=== PATIENT | female | born 1980 | race Caucasian/White ===

== ENCOUNTER 2021-11-25 10:20 | Inpatient (IN) | payer SELFPAY ==
[2021-11-25 10:51] VITALS: BMI 20.3
[2021-11-25 10:52] VITALS: BP 110/75; PULSE 101; RESP 18; TEMP 36.6; O2SAT 96
[2021-11-25] MEDS: OLANZapine 5 mg ODT PO (12:58)
[2021-11-25] MEDS: nicotine 2 mg Gum BUCCAL ×2 (12:58→20:39)
[2021-11-25 14:00] VITALS: BP 110/75; PULSE 101; RESP 18; TEMP 36.6; O2SAT 96
[2021-11-25] MEDS: ibuprofen 800 mg tablet PO ×2 (17:39→20:36)
[2021-11-25 20:13] VITALS: BP 95/63; PULSE 92; RESP 18; O2SAT 98
[2021-11-25] MEDS: trazodone 50 mg Tablet PO (20:36)
[2021-11-25] MEDS: hyDROXYzine 25 mg Capsule 50 MG PO (20:39)
[2021-11-25] MEDS: benzocaine 20% 7 gm 1 APPLIC MUCOUS MEM (20:39)
[2021-11-26 06:00] VITALS: BP 109/67; PULSE 73; RESP 16; O2SAT 96
[2021-11-26] MEDS: ibuprofen 800 mg tablet PO ×2 (07:45→20:04)
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
[2021-11-26] MEDS: nicotine 2 mg Gum BUCCAL (08:55)
[2021-11-26] MEDS: nicotine 4 mg lozenge MUCOUS MEM ×2 (10:07→19:13)
[2021-11-26 13:40] VITALS: BP 127/74; PULSE 85; RESP 17; TEMP 36.8; O2SAT 97
[2021-11-26] MEDS: acetaminophen 325 mg Tablet 650 MG PO (15:24)
[2021-11-26] MEDS: clindamycin 150 mg Capsule 300 MG PO ×2 (17:46→20:04)
[2021-11-26] MEDS: propranolol 20 mg Tablet PO (19:13)
[2021-11-26 20:03] VITALS: BP 108/63; PULSE 76; RESP 17; TEMP 36.5; O2SAT 98
[2021-11-26] MEDS: trazodone 50 mg Tablet PO (20:04)
[2021-11-27 05:54] VITALS: BP 115/73; PULSE 93; RESP 16; TEMP 36.9; O2SAT 97
[2021-11-27] MEDS: acetaminophen 325 mg Tablet 650 MG PO ×2 (06:50→12:11)
[2021-11-27] MEDS: ibuprofen 800 mg tablet PO (08:31)
[2021-11-27] MEDS: nicotine 4 mg lozenge MUCOUS MEM ×3 (08:31→16:21)
[2021-11-27] MEDS: clindamycin 150 mg Capsule 300 MG PO ×3 (08:32→21:39)
--- NOTE | 2021-11-27 08:32 | P.NPUPN_ITS ---
Subjective NPU Subjective: Patient presents today reporting that she is little frustrated because she has not been able to reach people out where she was living. She feels confident that they are ignoring her call and that this is not a time to be worried about them. She identifies that notable situation with the person hangs up the call because she is calling her cell phone. Otherwise reports she feels like she is calming down and the medication is helpful. Mental Status Exam MSE Comments: This is a slender white female with a fairly androgenous appearance in hospital scrubs with adequate grooming and eye contact. Tattoos on exposed skin. No abnormal movements. Cooperative with exam in mild distress. Speech was normal rate and volume. Mood described as a little frustrated, affect is subdued. Thought process, organized. Thought content: patient denies any suicidal or homicidal ideation, no delusions reported or noted, and denies any auditory or visual hallucinations. Attention and concentration are intact and memory appeared reliable but none were formally tested. She is alert and oriented three times. Insight and judgment are limited. Impulse control is limited. Vitals/I&O/Wt Last Vital Signs Temp 98.4 F 11/27/21 05:54 Pulse 93 11/27/21 05:54 Resp 16 11/27/21 05:54 BP 115/73 11/27/21 05:54 Pulse Ox 97 11/27/21 05:54 Weight last 48 hrs Weight 72.303 kg Weight 68.039 kg A&P Assessment and plan (1) MINOO (generalized anxiety disorder): Status: Acute (2) Major depressive disorder: Status: Acute (3) Domestic concerns: Status: Acute Plan This is a 41 year old white female with a long history of trauma and genetic loading for mental health, addiction and lethality issues who presents on a 96 hour hold secondary to recent interpersonal conflict between her and one of the people she has been living with. 1.? Continue current medications except started Propranolol 20 mg po q tid prn. 2.? Encourage individual, group and milieu therapy 3.? Continue q-15 minute check for safety 4.? Recommend sober living treatment at the highest level of care to which the patient is willing to commit. Involuntary Hold Information 96 Hour Hold: 96 Hour Involuntary Admission: Yes 96 Hour Hold Ending Date: 11/29/21 96 Hour Hold Ending Time: 21:20 Attestations NPU Medical Necessity Statement*: Inpatient hospitalization is medically necessary and the clinically appropriate intervention at this time. We will monitor medications and make changes as indicated. Likely length of stay is 1-3 days. Coding Level of Care Code Acute Honing Machine Operator Tool for g Fwd Diagnoses MINOO (generalized anxiety disorder) F41.1 Major depressive disorder F32.9 Domestic concerns Z65.8
[2021-11-27] MEDS: OLANZapine 5 mg ODT PO ×3 (12:12→21:39)
[2021-11-27 13:44] VITALS: BP 109/67; PULSE 66; RESP 17; TEMP 36.6; O2SAT 98
[2021-11-27] MEDS: ibuprofen 600 mg Tablet PO ×3 (14:47→21:39)
[2021-11-27 21:58] VITALS: BP 113/70; PULSE 61; RESP 17; TEMP 36.7; O2SAT 98
[2021-11-28 06:00] VITALS: RESP 16
[2021-11-28] MEDS: nicotine 4 mg lozenge MUCOUS MEM (08:11)
[2021-11-28] MEDS: propranolol 20 mg Tablet PO (08:11)
[2021-11-28] MEDS: clindamycin 150 mg Capsule 300 MG PO ×2 (08:11→12:48)
[2021-11-28] MEDS: ibuprofen 800 mg tablet PO (08:11)
[2021-11-28] MEDS: acetaminophen 325 mg Tablet 650 MG PO (12:48)
[2021-11-28] MEDS: OLANZapine 5 mg ODT PO (12:48)
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
[2021-11-28 13:34] VITALS: RESP 16
--- NOTE | 2021-11-28 14:50 | PC.NURSE ---
Per physician order Clindamycin 300 mg po tid # 19 no refills called to [facility] pharmacy on [address] , [place], [place] [phone].
== END 2021-11-28 15:08 | disposition home or self-care (01) | DRG 881 ==
PROVIDERS: Admitting Provider Psychiatry & Neurology Psychiatry; Visit Provider Psychiatry & Neurology Psychiatry
DX: F32.9 Major depressive disorder, single episode, unspecified (principal); F17.210 Nicotine dependence, cigarettes, uncomplicated; F10.10 Alcohol abuse, uncomplicated; Z81.8 Family history of other mental and behavioral disorders; Z59.00 Homelessness unspecified; F41.1 Generalized anxiety disorder
CPT/HCPCS: 97150; 97165